=== PATIENT | male | born 1945 | race Hispanic/Latino ===

== ENCOUNTER 2019-06-23 09:05 | Observation (INO) | payer MEDICARE, OTHER ==
[2019-06-19 08:49] LABS: BASOPHILS # (AUTO) 0.1 (0.0-0.1); EOSINOPHILS # (AUTO) 0.4 (0.0-0.4); EOSINOPHILS % 5.3 % (0.0-6.0); HEMATOCRIT 46.3 % (38.2-49.6); HEMOGLOBIN 15.1 g/dL (14.0-18.0); LYMPHOCYTES # (AUTO) 1.3 (1.0-3.2); LYMPHOCYTES % 16.6 % (18.0-39.1); MEAN CORPUSCULAR HEMOGLOBIN 30.3 pg (28-32); MEAN CORPUSCULAR HGB CONC 32.6 g/dL (31-35); MEAN CORPUSCULAR VOLUME 92.8 fL (81-99); MONOCYTES # (AUTO) 0.7 (0.2-0.8); MONOCYTES % 8.7 % (4.4-11.3); NEUTROPHILS # (AUTO) 5.4 (2.1-6.9); NEUTROPHILS % 68.1 % (38.7-80.0); PLATELET COUNT 283 x10e3/uL (140-360); RED BLOOD COUNT 4.99 x10e6/uL (4.3-5.7); RED CELL DISTRIBUTION WIDTH 13.4 % (11.7-14.4)
[2019-06-19 09:23] LABS: ANION GAP 15.9 mmol/L (8-16); CALCIUM 10.6 mg/dL (8.4-10.2); CREATININE, SERUM 1.37 mg/dL (0.72-1.25); POTASSIUM 3.9 mmol/L (3.5-5.1)
--- NOTE | 2019-06-19 10:04 | Diagnostic Imaging Report ---
X-ray chest 2 views Comparison: None History: Preop Findings: Status post median sternotomy and CABG. Atherosclerotic aorta. Heart size normal. No other mediastinal abnormality on this exam. No definite pleural effusion. No pneumothorax. Lung etienne unremarkable for a focal disease. Visualized skeletal structures and upper abdomen unremarkable for significant acute disease. Impression: No acute cardiopulmonary abnormality on this exam. Signed by: Oc Ray MD on 06/19/2019 10:00 AM
[~2019-06-23] VITALS: Ht 175.3 cm; Wt 72.1 kg
[~2019-06-23 09:05] MED LIST: AMLODIPINE BESY10 MG PO; ASPIR 8181 MG PO; ATORVASTATIN CA20 MG PO; CALCIUM PO; FENOFIBRATE145 MG PO; HYDROCHLOROTHIA25 MG PO; IRON PO; LISINOPRIL10 MG PO; METOPROLOL SUC200 MG PO; OMEPRAZOLE40 MG PO; POTASSIUM PO; ROPIVACAINE 246.25 MG, EPINEPHRINE HCL 1:1000 1ML 0.5 MG, CLONIDINE HCL 0.08 MG, KETORO... INJ ONE; SENIOR MULTIVITAMIN PO
--- OUTSIDE RECORDS SUMMARY | 2019-06-23 09:11 | XMS REPORT ---
Author Author [facility] Organization [facility] Address Unknown Phone Unavailable Care Team Providers Care Door Slinger Name Role Phone DANIEL HARRIS Unavailable Unavailable Payers Payer Name Policy Type Policy Number Effective Date Expiration D ate Problems This patient has no known problems. Allergies, Adverse Reactions, Alerts Allergy Name Allergy Type Status Severity Reaction(s) Onset Date Inacti ve Date Treating Clinician Comments hydrocodone DA Active U 2017-08-27 00:00:00 acetaminophen DA Active U 2017-08-27 00:00:00 Medications This patient has no known medications. Results Test Description Test Time Test Comments Text Results Atomic Results Result Comments CHEST 2 VIEWS 2019-06-19 09:59:00 [place] [address] Patient Name: HAYDER RITCHIE MR #: [id number] : 1945 Age/Sex: 73/M Req #: [id number] Adm Physician: Ordered by: DANIEL HARRIS MD Report #: [id number] Location: OR Room/Bed: Procedure: [id number] DX/CHEST 2 VIEWS Exam Date: 06/19/19 Exam Time: 821 REPORT STATUS: Signed X-ray chest 2 views Comparison: None History: Preop Findings: Status post median sternotomy and CABG. Atherosclerotic aorta. Heart size normal. No other mediastinal abnormality on this exam. No definite pleural effusion. No pneumothorax. Lung etienne unr emarkable for a focal disease. Visualized skeletal structures and upper abdomen unremarkable for significant acute disease. Impression: No acute cardiopulmonary abnormality on this exam. Signed by: Oc Ren MD on 06/19/2019 10:00 AM Dictated By: OC REN MD 1000 Transcribed By: RAFAEL on 06/19/19 1000 COPY TO: DANIEL HARRIS MD Complete Blood Count without Diff 2018-09-02 06:01:24 WBC (test code = WBC) 7.4 x10 4.4-10.5 RBC (test code = RBC) 4.37 x10 4.10-5.70 Hgb (test code = Hgb) 13.3 g/dL 13.4-17.4 Hct (test code = Hct) 39.2 % 38.7-52.0 MCV (test code = MCV) 89.70 fL 80.00-100.00 MCH (test code = MCH) 30.4 pg 27.0-32.5 MCHC (test code = MCHC) 33.90 g/dL 32.00-37.50 RDW CV (test code = RDW CV) 14.1 % 11.5-14.5 Platelets (test code = Platelets) 229.0 x10 140.0-440.0 MPV (test code = MPV) 10.3 fL nRBC (test code = nRBC) 0 NRBC Abs (test code = NRBC Abs) 0.00 x10 IPF (test code = IPF) 0 % Comprehensive Metabolic [id number] 06:00:24* Test Item Value Reference Range Comments Sodium Level (test code = Sodium Level) 136.0 mmol/L 135.0-14 5.0 Potassium Level (test code = Potassium Level) 3.0 mmol/L 3. 5-5.1 Chloride Level (test code = Chloride Level) 98 mmol/L 98-1 05 CO2 (test code = CO2) 28 mmol/L 22-29 Anion Gap (test code = Anion Gap) 10 mmol/L 7-16 BUN (test code = BUN) 25.80 mg/dL 8.00-23.00 Creatinine Level (test code = Creatinine Level) 1.50 mg/dL 0.70-1.20 BUN/Creat Ratio (test code = BUN/Creat Ratio) 17 Glucose Level (test code = Glucose Level) 108 mg/dL 70-115 Calcium Level (test code = Calcium Level) 8.1 mg/dL 8.3-10 .5 Alk Phos (test code = Alk Phos) 45 U/L 40-129 Bilirubin Total (test code = Bilirubin Total) 0.6 mg/dL 0. 1-0.9 Albumin Level (test code = Albumin Level) 4.1 g/dL 3.5-5. 2 Protein Total (test code = Protein Total) 6.5 g/dL 6.4-8. 3 ALT (test code = ALT) 18 U/L 1-41 AST (test code = AST) 24 U/L 1-40 Globulin (test code = Globulin) 2.4 g/dL 2.9-3.1 A/G Ratio (test code = A/G Ratio) 1.7 ratio eGFR AA (test code = eGFR AA) 56 mL/min/1.73 m2 eGFR (estimated Glomerular Filtration Rate) is an estimated value, calculated from the patient's serum creatinine using the MDRD equation. It is NOT the patient's actual GFR. The eGFR provides a more clinically useful measure of kidney disease than serum creatinine alone.This calculation takes sex and race into account, if the information is provided. If the race is not provided, and the patient is -[place], multiply by 1.212. If sex is not provided, and the patient is female, multiply by 0.742. Results for patients <18 years of age have not been validated by the MDRD study and should be interpreted with caution. eGFR Result Interpretation:eGFR > or = 60 is in the Normal RangeeGFR < 60 may mean kidney diseaseeGFR < 15 may mean kidney failure Ranges recommended by the National Kidney Foundation, http://nkdep.nih.gov Comprehensive Metabolic [id number] 06:00:24* Test Item Value Reference Range Comments Sodium Level (test code = Sodium Level) 136.0 mmol/L 135.0-14 5.0 Potassium Level (test code = Potassium Level) 3.0 mmol/L 3. 5-5.1 Chloride Level (test code = Chloride Level) 98 mmol/L 98-1 05 CO2 (test code = CO2) 28 mmol/L 22-29 Anion Gap (test code = Anion Gap) 10 mmol/L 7-16 BUN (test code = BUN) 25.80 mg/dL 8.00-23.00 Creatinine Level (test code = Creatinine Level) 1.50 mg/dL 0.70-1.20 BUN/Creat Ratio (test code = BUN/Creat Ratio) 17 Glucose Level (test code = Glucose Level) 108 mg/dL 70-115 Calcium Level (test code = Calcium Level) 8.1 mg/dL 8.3-10 .5 Alk Phos (test code = Alk Phos) 45 U/L 40-129 Bilirubin Total (test code = Bilirubin Total) 0.6 mg/dL 0. 1-0.9 Albumin Level (test code = Albumin Level) 4.1 g/dL 3.5-5. 2 Protein Total (test code = Protein Total) 6.5 g/dL 6.4-8. 3 ALT (test code = ALT) 18 U/L 1-41 AST (test code = AST) 24 U/L 1-40 Globulin (test code = Globulin) 2.4 g/dL 2.9-3.1 A/G Ratio (test code = A/G Ratio) 1.7 ratio eGFR AA (test code = eGFR AA) 56 mL/min/1.73 m2 eGFR (estimated Glomerular Filtration Rate) is an estimated value, calculated from the patient's serum creatinine using the MDRD equation. It is NOT the patient's actual GFR. The eGFR provides a more clinically useful measure of kidney disease than serum creatinine alone.This calculation takes sex and race into account, if the information is provided. If the race is not provided, and the patient is -[place], multiply by 1.212. If sex is not provided, and the patient is female, multiply by 0.742. Results for patients <18 years of age have not been validated by the MDRD study and should be interpreted with caution. eGFR Result Interpretation:eGFR > or = 60 is in the Normal RangeeGFR < 60 may mean kidney diseaseeGFR < 15 may mean kidney failure Ranges recommended by the National Kidney Foundation, http://nkdep.nih.gov Magnesium [id number] 06:00:24* Test Item Value Reference Range Comments Magnesium Level (test code = Magnesium Level) 1.6 mg/dL 1. 7-2.5 Phosphorus [id number] 06:00:24* Test Item Value Reference Range Comments Phosphorus Level (test code = Phosphorus Level) 2.60 mg/dL 2.70-4.50 Comprehensive Metabolic [id number] 06:00:24* Test Item Value Reference Range Comments Sodium Level (test code = Sodium Level) 136.0 mmol/L 135.0-14 5.0 Potassium Level (test code = Potassium Level) 3.0 mmol/L 3. 5-5.1 Chloride Level (test code = Chloride Level) 98 mmol/L 98-1 05 CO2 (test code = CO2) 28 mmol/L 22-29 Anion Gap (test code = Anion Gap) 10 mmol/L 7-16 BUN (test code = BUN) 25.80 mg/dL 8.00-23.00 Creatinine Level (test code = Creatinine Level) 1.50 mg/dL 0.70-1.20 BUN/Creat Ratio (test code = BUN/Creat Ratio) 17 Glucose Level (test code = Glucose Level) 108 mg/dL 70-115 Calcium Level (test code = Calcium Level) 8.1 mg/dL 8.3-10 .5 Alk Phos (test code = Alk Phos) 45 U/L 40-129 Bilirubin Total (test code = Bilirubin Total) 0.6 mg/dL 0. 1-0.9 Albumin Level (test code = Albumin Level) 4.1 g/dL 3.5-5. 2 Protein Total (test code = Protein Total) 6.5 g/dL 6.4-8. 3 ALT (test code = ALT) 18 U/L 1-41 AST (test code = AST) 24 U/L 1-40 Globulin (test code = Globulin) 2.4 g/dL 2.9-3.1 A/G Ratio (test code = A/G Ratio) 1.7 ratio eGFR AA (test code = eGFR AA) 56 mL/min/1.73 m2 eGFR (estimated Glomerular Filtration Rate) is an estimated value, calculated from the patient's serum creatinine using the MDRD equation. It is NOT the patient's actual GFR. The eGFR provides a more clinically useful measure of kidney disease than serum creatinine alone.This calculation takes sex and race into account, if the information is provided. If the race is not provided, and the patient is -[place], multiply by 1.212. If sex is not provided, and the patient is female, multiply by 0.742. Results for patients <18 years of age have not been validated by the MDRD study and should be interpreted with caution. eGFR Result Interpretation:eGFR > or = 60 is in the Normal RangeeGFR < 60 may mean kidney diseaseeGFR < 15 may mean kidney failure Ranges recommended by the National Kidney Foundation, http://nkdep.nih.gov eGFR Non-AA (test code = eGFR Non-AA) 45.87 mL/min/1.73 m2 eGFR (estimated Glomerular Filtration Rate) is an estimated value, calculated from the patient's serum creatinine using the MDRD equation. It is NOT the patient's actual GFR. The eGFR provides a more clinically useful measure of kidney disease than serum creatinine alone.This calculation takes sex and race into account, if the information is provided. If the race is not provided, and the patient is -[place], multiply by 1.212. If sex is not provided, and the patient is female, multiply by 0.742. Results for patients <18 years of age have not been validated by the MDRD study and should be interpreted with caution. eGFR Result Interpretation:eGFR > or = 60 is in the Normal RangeeGFR < 60 may mean kidney diseaseeGFR < 15 may mean kidney failure Ranges recommended by the National Kidney Foundation, http://nkdep.nih.gov Lactic Acid, Plasma (Venous)2018-09-02 06:00:24* Test Item Value Reference Range Comments Lactic Acid, Plasma (Venous) (test code = Lactic Acid, Plasma (Venous)) 0.8 mmol/L 0.5-1.9 Basic Metabolic [id number] 07:00:19* Test Item Value Reference Range Comments Sodium Level (test code = Sodium Level) 144.0 mmol/L 135.0-14 5.0 Potassium Level (test code = Potassium Level) 3.4 mmol/L 3. 5-5.1 Chloride Level (test code = Chloride Level) 98 mmol/L 98-1 05 CO2 (test code = CO2) 30 mmol/L 22-29 Anion Gap (test code = Anion Gap) 16 mmol/L 7-16 BUN (test code = BUN) 29.00 mg/dL 8.00-23.00 Creatinine Level (test code = Creatinine Level) 1.90 mg/dL 0.70-1.20 BUN/Creat Ratio (test code = BUN/Creat Ratio) 15 Glucose Level (test code = Glucose Level) 105 mg/dL 70-115 Calcium Level (test code = Calcium Level) 9.3 mg/dL 8.3-10 .5 Basic Metabolic [id number] 07:00:19* Test Item Value Reference Range Comments Sodium Level (test code = Sodium Level) 144.0 mmol/L 135.0-14 5.0 Potassium Level (test code = Potassium Level) 3.4 mmol/L 3. 5-5.1 Chloride Level (test code = Chloride Level) 98 mmol/L 98-1 05 CO2 (test code = CO2) 30 mmol/L 22-29 Anion Gap (test code = Anion Gap) 16 mmol/L 7-16 BUN (test code = BUN) 29.00 mg/dL 8.00-23.00 Creatinine Level (test code = Creatinine Level) 1.90 mg/dL 0.70-1.20 BUN/Creat Ratio (test code = BUN/Creat Ratio) 15 Glucose Level (test code = Glucose Level) 105 mg/dL 70-115 Calcium Level (test code = Calcium Level) 9.3 mg/dL 8.3-10 .5 eGFR AA (test code = eGFR AA) 42 mL/min/1.73 m2 eGFR (estimated Glomerular Filtration Rate) is an estimated value, calculated from the patient's serum creatinine using the MDRD equation. It is NOT the patient's actual GFR. The eGFR provides a more clinically useful measure of kidney disease than serum creatinine alone.This calculation takes sex and race into account, if the information is provided. If the race is not provided, and the patient is -[place], multiply by 1.212. If sex is not provided, and the patient is female, multiply by 0.742. Results for patients <18 years of age have not been validated by the MDRD study and should be interpreted with caution. eGFR Result Interpretation:eGFR > or = 60 is in the Normal RangeeGFR < 60 may mean kidney diseaseeGFR < 15 may mean kidney failure Ranges recommended by the National Kidney Foundation, http://nkdep.nih.gov Basic Metabolic [id number] 07:00:19* Test Item Value Reference Range Comments Sodium Level (test code = Sodium Level) 144.0 mmol/L 135.0-14 5.0 Potassium Level (test code = Potassium Level) 3.4 mmol/L 3. 5-5.1 Chloride Level (test code = Chloride Level) 98 mmol/L 98-1 05 CO2 (test code = CO2) 30 mmol/L 22-29 Anion Gap (test code = Anion Gap) 16 mmol/L 7-16 BUN (test code = BUN) 29.00 mg/dL 8.00-23.00 Creatinine Level (test code = Creatinine Level) 1.90 mg/dL 0.70-1.20 BUN/Creat Ratio (test code = BUN/Creat Ratio) 15 Glucose Level (test code = Glucose Level) 105 mg/dL 70-115 Calcium Level (test code = Calcium Level) 9.3 mg/dL 8.3-10 .5 eGFR AA (test code = eGFR AA) 42 mL/min/1.73 m2 eGFR (estimated Glomerular Filtration Rate) is an estimated value, calculated from the patient's serum creatinine using the MDRD equation. It is NOT the patient's actual GFR. The eGFR provides a more clinically useful measure of kidney disease than serum creatinine alone.This calculation takes sex and race into account, if the information is provided. If the race is not provided, and the patient is -[place], multiply by 1.212. If sex is not provided, and the patient is female, multiply by 0.742. Results for patients <18 years of age have not been validated by the MDRD study and should be interpreted with caution. eGFR Result Interpretation:eGFR > or = 60 is in the Normal RangeeGFR < 60 may mean kidney diseaseeGFR < 15 may mean kidney failure Ranges recommended by the National Kidney Foundation, http://nkdep.nih.gov eGFR Non-AA (test code = eGFR Non-AA) 34.92 mL/min/1.73 m2 eGFR (estimated Glomerular Filtration Rate) is an estimated value, calculated from the patient's serum creatinine using the MDRD equation. It is NOT the patient's actual GFR. The eGFR provides a more clinically useful measure of kidney disease than serum creatinine alone.This calculation takes sex and race into account, if the information is provided. If the race is not provided, and the patient is -[place], multiply by 1.212. If sex is not provided, and the patient is female, multiply by 0.742. Results for patients <18 years of age have not been validated by the MDRD study and should be interpreted with caution. eGFR Result Interpretation:eGFR > or = 60 is in the Normal RangeeGFR < 60 may mean kidney diseaseeGFR < 15 may mean kidney failure Ranges recommended by the National Kidney Foundation, http://nkdep.nih.gov CT Abdomen w/o [id number] 19:23:55Patient: HAYDER RITCHIE Date/Time08/31/2018 19:10 CDTReason for Examn/v/abd pain;Abdominal painReportLocation: T 18CT of the abdomen 08/31/2018CLINICAL HISTORY: Abdominal pain, nausea and vomiting.TECHNIQUE: A CT exam of the abdomen was performed without contrast on a helical scanner. Scanning conducted in the axial plane acquiring 4 mm contiguous slice thickness from the diaphragms through the pubic symphysis. 2D coronal and sagittal reformatted acquired on CT workstation using MPR software . The examination was performed on a updated helical CT scan with low-dose technique utilized. Automatic exposure control was utilized to reduce radiation doseCOMPARISON: None relevant to this studyFINDINGS:Dysplasia involving the skeletal structures.The liver demonstrates normal size, attenuation and contour without focal masses. The gallbladder has been removed. No biliary distention is seen.The spleen is normal in size without focal defects.The adrenal glands are unremarkable without masses.The pancreas demonstrates normal contour and attenuation without definite focal masses or enlargement. There is no effacement of the peripancreatic fat to suggest an inflammatory process. There are no peripancreatic fluid collections.Visualized bowel appears unremarkable. No pneumoperitoneum is seen. No obstructive pattern is seen. There is visualization of a normal appendix without acute bowel pathology. Scattered diverticuli along the left side of the colon without acute colitis. Bowel loops in the pelvis was not imaged, since the pelvis was not scanned.Both the abdominal aorta and IVC are unremarkable.There is no significant adenopathy within the abdomen.The kidneys demonstrate no hyd ronephrosis. No fluid collections are identified. 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 No other definite renal mass.The bases of the lungs are clear.IMPRESSION:Div erticulosis along the left side of the colon without acute diverticulitis.Visual ization of a normal-appearing appendix. No definite acute bowel pathologySkeleta l dysplasiaCholecystectomy changesExam Date/Time08/31/2018 19:10 CDTReportProbabl e small subcentimeter angiomyolipoma in the right kidney Final Dictate d by: MD Singh, Mirela FOYictated DT/TM: 08/31/2018 7:20 pmSigned b y: MD Singh, Mirela MSigned (Electronic Signature): 08/31/2018 7:23 pmCreatine [id number] 16:34:11* Test Item Value Reference Range Comments CK (test code = CK) 183 U/L 39-308 Comprehensive Metabolic [id number] 15:00:44* Test Item Value Reference Range Comments Sodium Level (test code = Sodium Level) 146.0 mmol/L 135.0-14 5.0 Potassium Level (test code = Potassium Level) 3.56 mmol/L 3. 5-5.1 Specimen hemolyzed. K+ results may be spuriously elevated. Recommend specimen recollection. Chloride Level (test code = Chloride Level) 101 mmol/L 98-1 05 CO2 (test code = CO2) 25 mmol/L 22-29 Anion Gap (test code = Anion Gap) 20 mmol/L 7-16 BUN (test code = BUN) 20.50 mg/dL 8.00-23.00 Creatinine Level (test code = Creatinine Level) 1.40 mg/dL 0.70-1.20 BUN/Creat Ratio (test code = BUN/Creat Ratio) 15 Glucose Level (test code = Glucose Level) 188 mg/dL 70-115 Calcium Level (test code = Calcium Level) 10.1 mg/dL 8.3-10 .5 Alk Phos (test code = Alk Phos) 54 U/L 40-129 Bilirubin Total (test code = Bilirubin Total) 0.5 mg/dL 0. 1-0.9 Albumin Level (test code = Albumin Level) 5.0 g/dL 3.5-5. 2 Protein Total (test code = Protein Total) 8.3 g/dL 6.4-8. 3 ALT (test code = ALT) 23 U/L 1-41 AST (test code = AST) 37 U/L 1-40 Globulin (test code = Globulin) 3.3 g/dL 2.9-3.1 A/G Ratio (test code = A/G Ratio) 1.5 ratio Lipase [id number] 15:00:44* Test Item Value Reference Range Comments Lipase Level (test code = Lipase Level) 40 U/L 13-60 Comprehensive Metabolic [id number] 15:00:44* Test Item Value Reference Range Comments Sodium Level (test code = Sodium Level) 146.0 mmol/L 135.0-14 5.0 Potassium Level (test code = Potassium Level) 3.56 mmol/L 3. 5-5.1 Specimen hemolyzed. K+ results may be spuriously elevated. Recommend specimen recollection. Chloride Level (test code = Chloride Level) 101 mmol/L 98-1 05 CO2 (test code = CO2) 25 mmol/L 22-29 Anion Gap (test code = Anion Gap) 20 mmol/L 7-16 BUN (test code = BUN) 20.50 mg/dL 8.00-23.00 Creatinine Level (test code = Creatinine Level) 1.40 mg/dL 0.70-1.20 BUN/Creat Ratio (test code = BUN/Creat Ratio) 15 Glucose Level (test code = Glucose Level) 188 mg/dL 70-115 Calcium Level (test code = Calcium Level) 10.1 mg/dL 8.3-10 .5 Alk Phos (test code = Alk Phos) 54 U/L 40-129 Bilirubin Total (test code = Bilirubin Total) 0.5 mg/dL 0. 1-0.9 Albumin Level (test code = Albumin Level) 5.0 g/dL 3.5-5. 2 Protein Total (test code = Protein Total) 8.3 g/dL 6.4-8. 3 ALT (test code = ALT) 23 U/L 1-41 AST (test code = AST) 37 U/L 1-40 Globulin (test code = Globulin) 3.3 g/dL 2.9-3.1 A/G Ratio (test code = A/G Ratio) 1.5 ratio eGFR AA (test code = eGFR AA) 60 mL/min/1.73 m2 eGFR (estimated Glomerular Filtration Rate) is an estimated value, calculated from the patient's serum creatinine using the MDRD equation. It is NOT the patient's actual GFR. The eGFR provides a more clinically useful measure of kidney disease than serum creatinine alone.This calculation takes sex and race into account, if the information is provided. If the race is not provided, and the patient is -[place], multiply by 1.212. If sex is not provided, and the patient is female, multiply by 0.742. Results for patients <18 years of age have not been validated by the MDRD study and should be interpreted with caution. eGFR Result Interpretation:eGFR > or = 60 is in the Normal RangeeGFR < 60 may mean kidney diseaseeGFR < 15 may mean kidney failure Ranges recommended by the National Kidney Foundation, http://nkdep.nih.gov Magnesium [id number] 15:00:44* Test Item Value Reference Range Comments Magnesium Level (test code = Magnesium Level) 0.8 mg/dL 1. 7-2.5 Troponin [id number] 15:00:44* Test Item Value Reference Range Comments Troponin-T (test code = Troponin-T) 12.700 ng/L 0.000-22.000 The CV of the assay at 99th percentile for both male and female patient population is < 10%. A rise and fall in JOLLY with at least one value above the 99th percentile with clinical evidence of myocardial ischemia would support a diagnosis of AMI. A delta of at least 20% is recommended to access acute changes in results above the 99th percentile in serial measurements. Stable JOLLY levels (<20%) delta above the 99th percentile URL would support a diagnosis of chronic myocardial injury. Comprehensive Metabolic [id number] 15:00:44* Test Item Value Reference Range Comments Sodium Level (test code = Sodium Level) 146.0 mmol/L 135.0-14 5.0 Potassium Level (test code = Potassium Level) 3.56 mmol/L 3. 5-5.1 Specimen hemolyzed. K+ results may be spuriously elevated. Recommend specimen recollection. Chloride Level (test code = Chloride Level) 101 mmol/L 98-1 05 CO2 (test code = CO2) 25 mmol/L 22-29 Anion Gap (test code = Anion Gap) 20 mmol/L 7-16 BUN (test code = BUN) 20.50 mg/dL 8.00-23.00 Creatinine Level (test code = Creatinine Level) 1.40 mg/dL 0.70-1.20 BUN/Creat Ratio (test code = BUN/Creat Ratio) 15 Glucose Level (test code = Glucose Level) 188 mg/dL 70-115 Calcium Level (test code = Calcium Level) 10.1 mg/dL 8.3-10 .5 Alk Phos (test code = Alk Phos) 54 U/L 40-129 Bilirubin Total (test code = Bilirubin Total) 0.5 mg/dL 0. 1-0.9 Albumin Level (test code = Albumin Level) 5.0 g/dL 3.5-5. 2 Protein Total (test code = Protein Total) 8.3 g/dL 6.4-8. 3 ALT (test code = ALT) 23 U/L 1-41 AST (test code = AST) 37 U/L 1-40 Globulin (test code = Globulin) 3.3 g/dL 2.9-3.1 A/G Ratio (test code = A/G Ratio) 1.5 ratio eGFR AA (test code = eGFR AA) 60 mL/min/1.73 m2 eGFR (estimated Glomerular Filtration Rate) is an estimated value, calculated from the patient's serum creatinine using the MDRD equation. It is NOT the patient's actual GFR. The eGFR provides a more clinically useful measure of kidney disease than serum creatinine alone.This calculation takes sex and race into account, if the information is provided. If the race is not provided, and the patient is -[place], multiply by 1.212. If sex is not provided, and the patient is female, multiply by 0.742. Results for patients <18 years of age have not been validated by the MDRD study and should be interpreted with caution. eGFR Result Interpretation:eGFR > or = 60 is in the Normal RangeeGFR < 60 may mean kidney diseaseeGFR < 15 may mean kidney failure Ranges recommended by the National Kidney Foundation, http://nkdep.nih.gov eGFR Non-AA (test code = eGFR Non-AA) 49.68 mL/min/1.73 m2 eGFR (estimated Glomerular Filtration Rate) is an estimated value, calculated from the patient's serum creatinine using the MDRD equation. It is NOT the patient's actual GFR. The eGFR provides a more clinically useful measure of kidney disease than serum creatinine alone.This calculation takes sex and race into account, if the information is provided. If the race is not provided, and the patient is -[place], multiply by 1.212. If sex is not provided, and the patient is female, multiply by 0.742. Results for patients <18 years of age have not been validated by the MDRD study and should be interpreted with caution. eGFR Result Interpretation:eGFR > or = 60 is in the Normal RangeeGFR < 60 may mean kidney diseaseeGFR < 15 may mean kidney failure Ranges recommended by the National Kidney Foundation, http://nkdep.nih.gov Complete Blood Count with [id number] 14:20:43* Test Item Value Reference Range Comments WBC (test code = WBC) 12.1 x10 4.4-10.5 RBC (test code = RBC) 4.89 x10 4.10-5.70 Hgb (test code = Hgb) 15.2 g/dL 13.4-17.4 Hct (test code = Hct) 43.7 % 38.7-52.0 MCV (test code = MCV) 89.40 fL 80.00-100.00 MCHC (test code = MCHC) 34.80 g/dL 32.00-37.50 MCH (test code = MCH) 31.1 pg 27.0-32.5 RDW CV (test code = RDW CV) 13.9 % 11.5-14.5 Platelets (test code = Platelets) 279.0 x10 140.0-440.0 MPV (test code = MPV) 10.9 fL Slide Review (test code = Slide Review) Auto Auto Result created by [id number]_SJM_SLIDE_REV_AUTO nRBC (test code = nRBC) 0 NRBC Abs (test code = NRBC Abs) 0.00 x10 IPF (test code = IPF) 0 % Automated [id number] 14:20:43* Test Item Value Reference Range Comments Neutro Auto (test code = Neutro Auto) 77.9 % 36.0-70.0 Lymph Auto (test code = Lymph Auto) 15.0 % 12.0-44.0 Owsley Auto (test code = Owsley Auto) 5.7 % 0.0-11.0 Eos, Auto (test code = Eos, Auto) 0.8 % 0.0-7.0 Basophil Auto (test code = Basophil Auto) 0.4 % 0.0-2. 0 Neutro Absolute (test code = Neutro Absolute) 9.4 x10 1. 6-7.4 Lymph Absolute (test code = Lymph Absolute) 1.82 x10 .50- 4.60 Owsley Absolute (test code = Owsley Absolute) .69 x10 .00-1. 20 Eos Absolute (test code = Eos Absolute) 0.10 x10 0.00-0.7 4 Baso Absolute (test code = Baso Absolute) 0.05 x10 0.00-0 .21 IG [id number] 14:20:43* Test Item Value Reference Range Comments IG (test code = IG) 0.2 % 0.0-5.0 IG Abs (test code = IG Abs) 0 x10 BLADDER,[id number] 13:29:00 RUN DATE: 04/07/18 [facility] [employer] [facility] PAGE 1 RUN TIME: 1329 Specimen Inqui ry RUN USER: INTERFACE PATIENT: HAYDER RITCHIE ACCT #: [id number] LOC: SAMIR U #: [id number] AGE/SX: 72/M ROOM: RE04/04/18REG DR: Chi Grove MD : 44 BED: DIS: STATUS: DEP [facility] TLOC: SPEC #: [id number] RECD: 04/04/18 STATUS: [facility] #: [id number] FAUSTINO: 04/04/18- [facility] DR: Chi Grove MD ENTERED: 04/04/18 SP TYPE: BX BLAD OT DR: Leland Steven od, DO ORDERED: GROSS COPIES TO: Chi Grove MD [address] [place] [address] Leland Benitez DO [address] [place] [address] MARKERS: INTRADEPARTMENTAL CONSU LT PROCEDURES: GROSS (04/07/18-112) TISSUES: 1. URINARY BLADDER, NOS - TRIGONE 2. URINARY BLADDER, NOS - NECK BX 3. URINARY BLADDER, NOS - POSTERIOR WALL 4. URINARY BLADDER, NOS - DOME 5. URINARY B LADDER, NOS - ANTERIOR WALL 6. URINARY BLADDER, NOS - LEFT LATERAL 7. URINARY BLADDER, NOS - RIGHT LATERAL 8. URINARY BLADDER, NOS - R IGHT SIDE LATERAL CLINICAL HISTORY COLLECTION DATE: 04/04/18 DANICA DDER CANCER COMMENT The small granuloma identified in the sixth sp ecimen is suggestive of BCG treatment. Correlation is necessary. Intradepa rtmental consultation: DMW. CONTINUED ON NEXT PAGE RUN DATE: 04/07/18 Camelia guerrero PAGE 2 RUN TIME: 1329 S pecpaulan Inquiry RUN USER: INTERFACE SPEC #: [id number] PATIENT: HAYDER RITCHIE #[id number] (Continued) F INAL DIAGNOSIS Urinary bladder, trigone, biopsy: UROTHELIUM WITH PATCH Y MILD CHRONIC INFLAMMATION NO MUSCULARIS PROPRIA PRESENT NEGATIVE FOR MALIGNANCY Urinary bladder, bladder neck: UROTHELIUM WITH PATC HY MILD CHRONIC INFLAMMATION AND EDEMA NO MUSCULARIS PROPRIA PRESENT NEGATIVE FOR MALIGNANCY Urinary bladder, posterior wall, biopsy: UROTHELIUM WITH PATCHY MILD CHRONIC INFLAMMATION UNREMARKABLE MUSCULARIS PROPRIA PRESENT NEGATIVE FOR MALIGNANCY Urinary bladder, dome, bi opsy: URINARY BLADDER WITH MILD CHRONIC INFLAMMATION NO MUSCULARI S PROPRIA PRESENT NEGATIVE FOR MALIGNANCY Urinary bladder, anterior wall, biopsy: URINARY BLADDER WITH PATCHY MILD CHRONIC INFLAMMATION NO MUSCULARIS PROPRIA PRESENT NEGATIVE FOR MALIGNANCY Urinary bl adder, left lateral wall, biopsy: URINARY BLADDER WITH PATCHY MILD CHRONI C INFLAMMATION AND PERIVASCULAR CHRONIC INFLAMMATION SMALL NON-C ASEATING GRANULOMA PRESENT UNREMARKABLE MUSCULARIS PROPRIA PRESENT NEGATIVE FOR MALIGNANCY Urinary bladder, right lateral wall, biopsy: UROTHELIUM WITH PATCHY MILD CHRONIC INFLAMMATION NO MUSCULARIS PROPRIA PRESENT NEGATIVE FOR MALIGNANCY Urinary bladder, right side latera l, biopsy: UROTHELIUM WITH PATCHY MINIMAL-MILD CHRONIC INFLAMMATION AND E ROBERTO NO MUSCULARIS PROPRIA PRESENT NEGATIVE FOR MALIGNANCY RRB/luis D [phone] CONTINUED ON NEXT PAGE RUN DATE: 04/07/18 Thomas - Lab PAGE 3 RUN TIME: 1329 Spec imen Inquiry RUN USER: INTERFACE SPEC #: [id number] PATIENT: HAYDER SPEARS #[id number] (Continued) SPENCER EDWARDSCOPNIKOS The first specimen is received in formalin, labeled with the patien t's name, and identified as "trigone". It consists of a ward biopsy fragment m easuring 0.2 cm. The second specimen is received in formalin, labeled wi th the patient's name, and identified as "bladder neck". It consists of a ward -brown biopsy fragment measuring 0.3 cm. The third specimen is received in formalin, labeled with the patient's name, and identified as "posterior wa ll". It consists of a ward biopsy fragment measuring 0.25 cm. The fourth specimen is received in formalin, labeled with the patient's name, and identi fied as "dome". It consists of a ward biopsy fragment measuring 0.2 cm. The fifth specimen is received in formalin, labeled with the patient's name, and identified as "anterior wall". It consists of a ward biopsy fragment measu ring 0.25 cm. The sixth specimen is received in formalin, labeled with t he patient's name, and identified as "left lateral". It consists of a ward bio psy fragment measuring 0.4 cm. The seventh specimen is received in for edgar, labeled with the patient's name, and identified as "rigth lateral". It consists of a ward biopsy fragment measuring 0.3 cm. The eight specimen is received in formalin, labeled with the patient's name, and identified as " right side lateral". It consists of a ward biopsy fragment measuring 0.25 cm. GROSS PERFORMED AT [facility] [address] [place] [id number] [phone] MICROSCOPIC MICROSCOPIC PERFORMED AT [facility] All of the stains, including any controls performed, stain appropriately. [facility] CONTINUED ON NEXT PAGE RUN DATE: 03/15 06/29 [facility] PAGE 4 RU N TIME: 1329 Specimen Inquiry RUN USER: INTERFACE ------ ------SPEC #: [id number] PATIENT: HAYDER RITCHIE #[id number] (Continued) MICROSCOPIC (Continued) [address] [facility], [place] [address] [phone] PERFORMING SITE Diagnosis performed at: [facility], [place] [address] [place] [address] Signed SIGNATURE ON FILE Per Nava 04/07/18 1329 END OF REPORT - SHASHANK NICE [id number] 08:09:00 FAX: Chi Barton MD [phone] [place]: B St: REG FAX: Leland Coffey DO [phone] Name: HAYDER RITCHIE [facility] : 1945 Age/S: 72/M [address] Unit #: [id number] Loc: [place] [address] Phys: Chi Grove MD Acct: [id number] Dis Date: Status: REG [facility] PHONE #: [phone] Exam Date: 04/04/2018 07 FAX #: [phone] Reason: BLADDER CANCER EXAMS: CPT CODE: [id number] XR CYSTOURETHRO RETRO 00548 HISTORY: Bladder cancer. 11 fluoroscopic spot images from the OR: Opacification of both collecting system. The bladder is poorly opacified. at 0809 Reported and signed by: Babatunde Portillo M.D. CC: Chi Grove M.D.; Leland Benitez DO Technologist: Manda Bocanegra(Ce) Trnscrd Date/Time/By: 04/04/2018 (08) : By: [email or web address] Orig Print D/T: S: 04/04/2018 (12) PAGE 1 Signed Report COMPREHENSIVE METABOLIC [id number] 11:55:00* Test Item Value Reference Range Comments SODIUM (test code = NA) 145 mmol/L 136-145 POTASSIUM (test code = K) 3.7 mmol/L 3.5-5.1 CHLORIDE (test code = CL) 106.0 mmol/L 98-107 CARBON DIOXIDE (test code = CO2) 32.0 mmol/L 21-32 ANION GAP (test code = GAP) 10.7 10-20 GLUCOSE (test code = GLU) 86 mg/dL 74-106 BLOOD UREA NITROGEN (test code = BUN) 21 mg/dL 7-18 GLOMERULAR FILTRATION RATE (test code = GFR) 54 mL/min >=6 0 Estimated GFR by using Modified MDRD formula.Chronic kidney disease is defined as either kidney damageor GFR <60 mL/min/1.73 m2 for >3 months. CREATININE (test code = CREAT) 1.30 mg/dL 0.7-1.3 BUN/CREATININE RATIO (test code = BUN/CREA) 16.2 10-2 0 TOTAL PROTEIN (test code = PROT) 8.7 gram/dL 6.4-8.2 ALBUMIN (test code = ALB) 4.2 g/dL 3.4-5.0 GLOBULIN (test code = GLOB) 4.5 gram/dL 2.7-4.2 ALBUMIN/GLOBULIN RATIO (test code = A/G) 0.9 0.75-1. 50 CALCIUM (test code = CA) 9.2 mg/dL 8.5-10.1 BILIRUBIN TOTAL (test code = BILT) 0.40 mg/dL 0.0-1.0 SGOT/AST (test code = AST) 24 IUnit/L 15-37 SGPT/ALT (test code = ALT) 31 IUnit/L 12-78 ALKALINE PHOSPHATASE TOTAL (test code = ALKP) 60 IUnit/L 45 -117 Note change in reference range due to change in reagent. COMPREHENSIVE METABOLIC [id number] 11:51:00* Test Item Value Reference Range Comments SODIUM (test code = NA) 145 mmol/L 136-145 POTASSIUM (test code = K) 3.7 mmol/L 3.5-5.1 CHLORIDE (test code = CL) 106.0 mmol/L 98-107 CARBON DIOXIDE (test code = CO2) mmol/L 21-32 ANION GAP (test code = GAP) 10-20 GLUCOSE (test code = GLU) mg/dL 74-106 BLOOD UREA NITROGEN (test code = BUN) mg/dL 7-18 GLOMERULAR FILTRATION RATE (test code = GFR) mL/min >=6 0 CREATININE (test code = CREAT) mg/dL 0.7-1.3 BUN/CREATININE RATIO (test code = BUN/CREA) 10-2 0 TOTAL PROTEIN (test code = PROT) gram/dL 6.4-8.2 ALBUMIN (test code = ALB) g/dL 3.4-5.0 GLOBULIN (test code = GLOB) gram/dL 2.7-4.2 ALBUMIN/GLOBULIN RATIO (test code = A/G) 0.75-1. 50 CALCIUM (test code = CA) mg/dL 8.5-10.1 BILIRUBIN TOTAL (test code = BILT) mg/dL 0.0-1.0 SGOT/AST (test code = AST) IUnit/L 15-37 SGPT/ALT (test code = ALT) IUnit/L 12-78 ALKALINE PHOSPHATASE TOTAL (test code = ALKP) IUnit/L 45 -117 CBC W/AUTO [id number] 11:31:00* Test Item Value Reference Range Comments WHITE BLOOD CELL (test code = WBC) 6.9 K/mm3 4.5-12.5 RED BLOOD CELL (test code = RBC) 4.85 mill/mm3 4.0-5.8 HEMOGLOBIN (test code = HGB) 14.8 gram/dL 13.0-17.5 HEMATOCRIT (test code = HCT) 46.1 % 42.0-52.0 MEAN CELL VOLUME (test code = MCV) 95.1 fL 80-98 MEAN CELL HGB (test code = MCH) 30.5 picogram 27.0-33.0 MEAN CELL HGB CONCETRATION (test code = MCHC) 32.1 gram/dL 33 .0-36.0 RED CELL DISTRIBUTION WIDTH (test code = RDW) 13.9 % 11 .6-16.2 RED CELL DISTRIBUTION WIDTH SD (test code = RDW-SD) 48.4 fL 37.0-51.0 PLATELET COUNT (test code = PLT) 249 K/mm3 150-450 MEAN PLATELET VOLUME (test code = MPV) 11.0 fL 6.7-11.0 NEUTROPHIL % (test code = NT%) 63.1 % 39.0-69.0 IMMATURE GRANULOCYTE % (test code = IG%) 0.1 % 0.0-5.0 LYMPHOCYTE % (test code = LY%) 23.4 % 25.0-55.0 MONOCYTE % (test code = MO%) 8.7 % 0.0-10.0 EOSINOPHIL % (test code = EO%) 3.8 % 0.0-5.0 BASOPHIL % (test code = BA%) 0.9 % 0.0-1.0 NUCLEATED RBC % (test code = NRBC%) 0.0 % 0-0 NEUTROPHIL # (test code = NT#) 4.34 K/mm3 1.8-7.7 IMMATURE GRANULOCYTE # (test code = IG#) 0.01 x10 3/uL 0-0.03 LYMPHOCYTE # (test code = LY#) 1.61 K/mm3 1.0-5.0 MONOCYTE # (test code = MO#) 0.60 K/mm3 0-0.8 EOSINOPHIL # (test code = EO#) 0.26 K/mm3 0.0-0.5 BASOPHIL # (test code = BA#) 0.06 K/mm3 0.0-0.2 NUCLEATED RBC # (test code = NRBC#) 0.00 K/mm3 0.0-0.1 MANUAL DIFF REQUIRED (test code = MDIFF) NO - XR CHEST 2 [id number] 10:36:00 FAX: Chi Barton MD [phone] [place]: O St: PRE FAX: Yudelka BenitezLeland Saurav [phone] Name: HAYDER RITCHIE [facility] : 1945 Age/S: 72/M [address] [facility] Unit #: [id number] Loc: [place] [address] Phys: Chi Grove MD Acct: [id number] Dis Date: Status: PRE [facility] PHONE #: [phone] Exam Date: 03/28/2018 1017 FAX #: [phone] Reason: PRE OP EXAMS: CPT CODE: [id number] XR CHEST 2 V 16221 HISTORY: Preop. COMPARISON: November 08, 2016. AP and lateral view of the chest: No acute infiltrates, effusion or congestion. Cardiac silhouette is mildly enlarged. Patient is post median sternotomy. IMPRESSION: No acute infiltrates, effusion or congestion. at 1036 Reported and signed by: Babatunde Portillo M.D. CC: Chi Grove M.D.; Leland Daniel DO Technologist: Juanita Ford RT(R); STUDENT TECHNOL NORMA Trnscrd Date/Time/By: 03/28/2018 (1036) : By: [email or web address] Orig Print D/T: S: 03/28/2018 (3407) PAGE 1 Signed Report
[2019-06-23] MEDS ORDERED: CELECOXIB 200 MG CAP ONE (09:21)
[2019-06-23] MEDS ORDERED: DEXAMETHASONE SOD PHOS 10 MG/1 ML VIAL ONE (09:21)
[2019-06-23] MEDS ORDERED: GABAPENTIN 300 MG CAP ONE (09:22)
[2019-06-23] MEDS ORDERED: CEFAZOLIN SOD 1 GM/NS 50ML 100 ML IV ONE (09:22)
[2019-06-23] MEDS ORDERED: TRANEXAMIC ACID 1,000 MG/10 ML ML ONE (09:53)
[2019-06-23] MEDS ORDERED: VANCOMYCIN HCL 1,000 MG ONE (09:53)
[2019-06-23] MEDS ORDERED: SODIUM CHLORIDE 0.9% 500ML 500 ML ONE (09:53)
[2019-06-23] MEDS ORDERED: BACITRACIN 50,000 UNIT VIAL ONE (09:54)
[2019-06-23] MEDS ORDERED: BUPIVACAINE 7.5MG/ML /DEXTROSE 82.5MG/ML 2 ML AMP INJ ONE (10:34)
[2019-06-23] MEDS ORDERED: DIPHENHYDRAMINE HCL INJ 50 MG/ML VIAL IV PRN (12:00)
[2019-06-23] MEDS ORDERED: DOCUSATE SODIUM 100 MG CAP PO PRN (12:00)
[2019-06-23] MEDS ORDERED: KETOROLAC TROMETHAMINE 30 MG/ML VIAL IV PRN (12:00)
[2019-06-23] MEDS ORDERED: HYDROCODONE/APAP 5MG-325MG TAB PO PRN (12:00)
[2019-06-23] MEDS ORDERED: ONDANSETRON HCL INJ 2MG/ML 2ML 2 MG/ML VIAL IV PRN (12:00)
[2019-06-23] MEDS ORDERED: ACETAMINOPHEN 650 MG SUPP PR PRN (12:00)
--- NOTE | 2019-06-23 14:11 | NUR ---
RECEIVED PATIENT FROM PACU. PATIENT A/O X3, EVEN RESPIRATIONS ON RA. LUNG SOUNDS CLEAR. LEFT HIP DRESSING C/D/I. ABDUCTOR PILLOW IN PLACE. FOOT PUMPS BILATERAL. RIGHT HAND 20 GAUGE IV WITH NS @ 100 CC/HR. PATIENT DENIES PAIN AT THIS TIME. BED LOW, WHEELS LOCKED, SIDE RAILS X2. CALL LIGHT IN REACH. WILL CONTINUE TO MONITOR PATIENT.
[2019-06-23 14:57] VITALS: BP 137/67
[2019-06-23 15:00] VITALS: BP 137/67
[2019-06-23] MEDS: SODIUM CHLORIDE 0.9% 1000ML 1,000 ML IV SCH (16:12)
--- NOTE | 2019-06-23 16:25 | Operative Report ---
DATE OF PROCEDURE: 06/23/2019 SURGEON: Angel Crawford MD SELF STORAGE MANAGER: Josef Chen, Certified PA PREOPERATIVE DIAGNOSIS: Osteoarthritis, left hip. POSTOPERATIVE DIAGNOSIS: Osteoarthritis, left hip. PROCEDURE: Left total hip arthroplasty. INDICATIONS: The patient is a 73-year-old gentleman with severe end-stage arthritis of his left hip. He has failed conservative management and would like to proceed with surgical intervention. The risks and benefits of a left total hip replacement have been explained. All of his questions have been answered. He states he understands and wishes to proceed. DESCRIPTION OF PROCEDURE: The patient was brought to the operating room and given a spinal anesthetic. He received prophylactic antibiotics and tranexamic acid in the holding area. His left hip was prepped and draped in a sterile manner. A preoperative time-out was performed. A limited incision posterior approach was made to the left hip. A Charnley self-retaining retractor was placed. Hemostasis was obtained with electrocautery. Care was taken to avoid injury to the sciatic nerve. The posterior capsule was released along with the short external rotators. Further hemostasis was obtained with electrocautery. The hip was dislocated and an oscillating saw was used to resect the femoral head. Complete loss of articular cartilage and deformity was noted. Acetabular retractors were placed. Labral remnants were excised using a long-handled knife. The true floor of the acetabulum was established with a 50 mm reamer. The socket was then sequentially reamed up to 57 mm. This accomplished bleeding hemispherical cancellous bone. A Wilfred Biomet 58 mm OsseoTi socket was impacted into place. The hip had been thoroughly irrigated on several occasions with a shower tip pulsatile lavage. Excellent fixation and bone quality were encountered. Fixation was augmented with a single 25 mm screw placed into the ilium. A highly cross-linked polyethylene liner with a 36 mm inner diameter was then seated. Care was taken to make sure that there was no evidence of soft tissue interposition. The socket was packed with a moistly soaked lap sponge and attention was directed towards the proximal femur. A box cutting osteotome and taper pin reamers were used to establish entry to the femoral canal. The Taperloc broaches were impacted. A size #9 stem had good canal fill and stability. Trial reductions were performed. A standard 36 mm head provided appropriate soft tissue balancing, stability and pentecostalism of limb length. The trial implants were removed. The hip was further irrigated with a shower tip pulsatile lavage. The taper lock stem and a standard 36 mm ceramic head were then placed. A final reduction was performed. A 100 mL premixed pericapsular LANI injection was placed around the soft tissue. The posterior capsule was repaired with #2 Ethibond. Ethibond. A 500 mg of vancomycin powder was sprinkled into the deep portion of wound. The fascia was closed with #2 Ethibond. The skin was closed with subcuticular Vicryl and kulwinder. A sterile Aquacel bandage was applied. The patient was returned to the supine position. He was transported to the recovery room in stable condition. Estimated blood loss was about 30 mL. All needle and sponge counts were correct. Angel Crawford MD DR/IVAN /[id number]
--- NOTE | 2019-06-23 16:31 | NUR ---
DR TYSON OFFICE PREARRANGED FOLLOWING DISCHARGE PLAN OF: HOME TO [facility] IN [facility] WITH HOME CARE PROVIDERS CONFIRMED WITH JOSHUA [phone] DME 3 IN ONE COMMODE,CPM AND ROLLING WALKER WITH WHEELS. PROVIDED BY [employer] [phone] ALMA DELIA SIGNED AND ON CHART COPY LEFT WITH PATIENT GAVE CARD FOR QUESTIONS AND OR CONCERNS.
[2019-06-23 16:35] VITALS: BP 137/67
[2019-06-23] MEDS: ASPIRIN 325 MG TAB PO SCH (16:57)
[2019-06-23] MEDS: CELECOXIB 100 MG CAP PO SCH (16:57)
[2019-06-23] MEDS: CEFAZOLIN SOD 1 GM/NS 50ML 50 ML IV SCH (16:57)
[2019-06-23] MEDS ORDERED: KETAMINE HCL INJ 50 MG/ML 10 ML VIAL ONE (18:48)
[2019-06-23] MEDS ORDERED: FENTANYL CITRATE/PF 100MCG/2 ML INJ ONE (18:48)
[2019-06-23] MEDS ORDERED: MIDAZOLAM HCL 2 MG/2 ML VIAL ONE (18:48)
--- NOTE | 2019-06-23 19:20 | NUR ---
PT ALERT AND ORIENTED X3. BEDSIDE SHIFT REPORT RESEIVED FROM DAY RN. RESPIRATIONS ARE EVEN AND UNLABORED.LEFT HIP DRESSING DRY AND INTACT.ABDUCTOR PILLOW IN PLACE.PEDAL PULSE PALPABLE IN BOTH FEET.PT DENIES PAIN.CALL MINOR WITHIN REACH. BED IN LOW POSITION.
[2019-06-23] MEDS ORDERED: ACETAMINOPHEN 1000 MG/100 ML IV ONE (19:59)
[2019-06-23] MEDS ORDERED: DEXAMETHASONE SOD PHOS INJ 4 MG/ML VIAL ONE (19:59)
[2019-06-23] MEDS ORDERED: EPHEDRINE SULFATE INJ 50 MG/ML VIAL ONE (19:59)
[2019-06-23] MEDS ORDERED: ONDANSETRON HCL INJ 2MG/ML 2ML 2 MG/ML VIAL ONE (19:59)
[2019-06-23] MEDS ORDERED: PROPOFOL IV EMULSION 10 MG/ML 20 ML VIAL ONE (19:59)
[2019-06-23] MEDS ORDERED: LIDOCAINE HCL 2% LOCAL INJ 5 ML SDV VIAL INJ ONE (19:59)
[2019-06-23 20:00] VITALS: BP 112/58
[2019-06-23] MEDS ORDERED: BUPIVACAINE HCL 0.5% INJ 30 ML VIAL INJ ONE (20:07)
[2019-06-23 21:00] VITALS: BP 112/58
[2019-06-23] MEDS ORDERED: ZOLPIDEM TARTRATE 5 MG TAB PO PRN (21:00)
[2019-06-24] VITALS: BP 131/66
[2019-06-24] MEDS: SODIUM CHLORIDE 0.9% 1000ML 1,000 ML IV SCH ×2 (01:28→08:00)
[2019-06-24] MEDS: CEFAZOLIN SOD 1 GM/NS 50ML 50 ML IV SCH ×2 (01:55→10:01)
[2019-06-24 04:00] VITALS: BP 142/74
--- NOTE | 2019-06-24 04:55 | NUR ---
PT C/O OF PAin. [place] given for left hip pain. pt report to nurse he was watching outside and saw people outside playing baseball. reported to dr ott.No new orders given.
[2019-06-24] MEDS: HYDROCODONE/APAP 7.5MG-325MG 1 EA TAB PO PRN ×2 (04:56→10:04)
--- NOTE | 2019-06-24 06:01 | Consultation ---
DATE OF CONSULTATION: REASON FOR CONSULTATION: Status post left hip arthroplasty. HISTORY OF PRESENT ILLNESS: The patient is a 73-year-old gentleman, status post left hip arthroplasty, doing well postoperatively, has minimal pain. He denies any fevers, chills, nausea, vomiting, headache, shortness of breath, or dizziness. PAST MEDICAL HISTORY: Significant for chronic kidney disease stage 3, hypertension, hyperlipidemia, and reflux disease. MEDICATIONS: See MAR. ALLERGIES: NONE. SOCIAL HISTORY: Nonsmoker, nondrinker. FAMILY HISTORY: Hypertension. PHYSICAL EXAMINATION: VITAL SIGNS: Temperature 96.6, pulse 60, blood pressure 131/66, sats 97% on room air. GENERAL: No apparent distress, lying in bed. NECK: Supple. No lymphadenopathy. CARDIOVASCULAR: Regular rate and rhythm. LUNGS: Clear to auscultation bilaterally. ABDOMEN: Good bowel sounds. Soft, nontender. EXTREMITIES: No clubbing or cyanosis. NEUROLOGIC: Nonfocal. ASSESSMENT/PLAN: 1. Status post left hip arthroplasty. Continue physical therapy. 2. Left hip pain. Continue with p.r.n. pain medicine. 3. Chronic kidney disease stage 3. Continue to monitor. 4. Anemia. Check CBC. 5. Reflux disease. Continue with his medication. 6. Hypertension. We will restart his medicines at discharge. 7. Hyperlipidemia. We will restart his medications at discharge. Please see hospital chart for full details. MD ANDRE Brown/IVAN /[id number]
[2019-06-24 06:17] LABS: HEMATOCRIT 31.3 % (38.2-49.6); HEMOGLOBIN 10.3 g/dL (14.0-18.0)
[2019-06-24 07:47] VITALS: BP 137/65
[2019-06-24 08:39] VITALS: BP 137/65
[2019-06-24] MEDS ORDERED: ONDANSETRON HCL 4 MG ORAL DISINTEGRATING TAB PO PRN (08:45)
--- NOTE | 2019-06-24 09:04 | Diagnostic Imaging Report ---
EXAMINATION: PELVIS AP 1-2 VIEWS INDICATION: Postoperative COMPARISON: None FINDINGS: Single portable AP radiograph of the pelvis demonstrates immediate postoperative findings of left total hip replacement. Alignment appears anatomic. No unexpected fracture. Diffuse athetotic arterial calcifications. Mild degenerative changes of the eklut[place] right hip joint. Degenerative changes of the partially visualized lower lumbar spine. Postoperative subcutaneous soft tissue emphysema and surgical skin kulwinder in place. IMPRESSION: Expected postoperative appearance status post left total hip replacement. Signed by: Eloisa Viramontes MD on 06/24/2019 9:00 AM
[2019-06-24] MEDS: ASPIRIN 325 MG TAB PO SCH (10:01)
[2019-06-24] MEDS: CELECOXIB 100 MG CAP PO SCH (10:01)
--- NOTE | 2019-06-24 10:50 | NUR ---
Pt. expressed no spiritual or emotional concerns. [employer] provided hospitality and information on how to reach software firmware engineer, if needed. No needs to follow at this time. MEENA ARROYO [employer] Spiritual Care Department O: [phone]
--- NOTE | 2019-06-24 11:34 | NUR ---
pt ambulating in hallway with physical therapy for 2nd therapy session; pt has no s/s of distress. will discharge home.
[2019-06-24 11:46] VITALS: BP 140/67
[2019-06-24] MEDS ORDERED: ACETAMINOPHEN 1000 MG/100 ML IV PRN (15:00)
== END 2019-06-24 12:35 | disposition home or self-care (01) ==
LOC: OR 09:05 → PACU V 11:53 → MED/SURG 14:15
PROVIDERS: ADMIT Specialist; ATTEND Specialist
DX: M16.12 Unilateral primary osteoarthritis, left hip (principal); E78.5 Hyperlipidemia, unspecified; I25.10 Atherosclerotic heart disease of native coronary artery without angina pectoris; Z95.1 Presence of aortocoronary bypass graft; I12.9 Hypertensive chronic kidney disease with stage 1 through stage 4 chronic kidney disease, or unspecified chronic kidney disease; N18.3 Chronic kidney disease, stage 3 (moderate); K21.9 Gastro-esophageal reflux disease without esophagitis
CPT/HCPCS: 27130; 36415 ×2; 71046; 72170; 80048; 85014; 85018; 85025; 86850; 86900; 86920; 87635; 93005; 97116; 97161; 97530; G0378 ×2; J0131; J0171; J0690 ×2; J1100 ×2; J1885; J2001; J2250; J2405; J2704; J2795; J3010; J3370; J7030 ×2; J7040